=== PATIENT | male | born 1960 | race Hispanic/Latino ===

== ENCOUNTER 2018-05-13 07:16 | Outpatient (CLI) | payer OTHER | END 2018-05-13 07:17 | disposition home or self-care (01) | LOC: RAD 07:16 | DX: M54.9 Dorsalgia, unspecified (principal) ==

== ENCOUNTER 2018-06-01 06:55 | Outpatient (CLI) | payer OTHER | END 2018-06-01 06:56 | disposition home or self-care (01) | LOC: LAB 06:55 ==